=== PATIENT | male | born 1940 | race Hispanic/Latino ===

== ENCOUNTER → 2024-06-07 | Outpatient (REF) | payer MEDICARE | LOC: US 08:40 | PROVIDERS: ATTEND Internal Medicine | DX: R10.9 Unspecified abdominal pain (principal) | CPT/HCPCS: 76700 ==

== ENCOUNTER → 2024-07-05 | Outpatient (REF) | payer MEDICARE | LOC: RAD 10:06 | PROVIDERS: ATTEND Internal Medicine | DX: R05.9 Cough, unspecified (principal) | CPT/HCPCS: 71046 ==